=== PATIENT | female | born 1975 | race American Indian/Alaskan Native ===

== ENCOUNTER 2016-09-13 23:56 | Emergency (ER) | payer OTHER ==
[2016-09-14 00:25] VITALS: BP 153/104
== END 2016-09-14 02:43 | disposition left against medical advice (07) ==
LOC: ED 23:56
DX: S69.92XA Unspecified injury of left wrist, hand and finger(s), initial encounter (principal); F31.9 Bipolar disorder, unspecified; F41.9 Anxiety disorder, unspecified; F43.10 Post-traumatic stress disorder, unspecified; F17.200 Nicotine dependence, unspecified, uncomplicated; Z88.8 Allergy status to other drugs, medicaments and biological substances; X58.XXXA Exposure to other specified factors, initial encounter; Y93.89 Activity, other specified; Y99.9 Unspecified external cause status; Y92.89 Other specified places as the place of occurrence of the external cause; Z53.21 Procedure and treatment not carried out due to patient leaving prior to being seen by health care provider

== ENCOUNTER 2016-09-14 17:04 | Emergency (ER) | payer OTHER ==
[2016-09-14] MEDS ORDERED: TORADOL IM ONE (21:56)
--- NOTE | 2016-09-14 22:03 | Emergency Department Report ---
HPI - General Chief Complaint: Extremity Injury, Upper Time Seen by Provider: 09/14/16 21:48 - HPI HPI: 41-year-old female presents today with left wrist pain that worsened last night. Patient states that she injured her wrist at home one week ago while lifting and last night she heard a pop while picking up something heavy at work today. Describes her pain as 6 out of 10 intermittent, throbbing, ache that is worse with movement. Denies history of similar symptoms. Denies numbness, weakness, paresthesias. Denies fever, chills, nausea, vomiting, chest pain, shortness of breath, abdominal pain, headache, visual changes. Positive for history of hypertension and was on lisinopril/HCTZ. Patient states that she has been out of her medication for 3 weeks. ED Past Medical Hx - Past Medical History Hx Hypertension: Yes Hx Psychiatric Treatment: Yes (depression.anxiety,ptsd,bipolar) Additional medical history: sleep apnea - Surgical History Past Surgical History?: Yes Additional Surgical History: hysterectomy - Social History Smoking Status: Current Every Day Smoker Substance Use Type: None - Medications Home Medications: Home Medications Medication Instructions Recorded Confirmed Last Taken Type amLODIPine [Norvasc] 5 mg PO DAILY #30 tab 09/14/16 Unknown Rx traMADol [Ultram 50 MG tab] 50 mg PO Q6HR PRN #14 tablet 09/14/16 Unknown Rx ED Review of Systems ROS: Stated complaint: LT WRIST INJURY Other details as noted in HPI Constitutional: denies: chills, fever, malaise Eyes: denies: eye pain, vision change ENT: denies: ear pain, throat pain, congestion Respiratory: denies: cough, shortness of breath, wheezing Cardiovascular: denies: chest pain, palpitations Endocrine: no symptoms reported Gastrointestinal: denies: abdominal pain, nausea, vomiting Musculoskeletal: joint swelling, arthralgia Neurological: denies: headache, weakness, numbness, paresthesias Physical Exam - Physical Exam Vital Signs: Vital Signs 09/14/16 17:19 Temperature 98.2 F Pulse Rate 77 Respiratory 16 Rate Blood Pressure 169/110 O2 Sat by Pulse 100 Oximetry Physical Exam: GENERAL: The patient is well-developed and well-nourished. Patient is in NAD. HEAD: Normocephalic. Atraumatic. CHEST/LUNGS: Clear to auscultation throughout. HEART/CARDIOVASCULAR: Regular rate and rhythm. ABDOMEN: Abdomen is soft, nontender. No guarding or rebound tenderness. LEFT WRIST: Tenderness to palpation over the radial aspect of the left wrist. Positive for minimal swelling. No ecchymosis or deformity noted. Limited range of motion due to pain. Normal sensation. 2 point discrimination intact. Peripheral pulses intact. Capillary refill less than 2 seconds. NEURO: Alert and oriented x 3. Normal gait. ED Course Vital Signs 09/14/16 17:19 Temperature 98.2 F Pulse Rate 77 Respiratory 16 Rate Blood Pressure 169/110 O2 Sat by Pulse 100 Oximetry ED Medical Decision Making - Lab Data Vital Signs 09/14/16 09/14/16 09/14/16 17:19 22:23 22:24 Temperature 98.2 F 98.4 F Pulse Rate 77 72 72 Respiratory 16 20 Rate Blood Pressure 169/110 156/111 Blood Pressure 156/111 [Right] O2 Sat by Pulse 100 99 Oximetry 09/14/16 09/14/16 22:28 23:26 Temperature 98.4 F Pulse Rate 73 Respiratory 20 20 Rate Blood Pressure Blood Pressure 123/85 [Right] O2 Sat by Pulse 99 Oximetry - Radiology Data Radiology results: report reviewed - Medical Decision Making 41-year-old female presents today with left wrist pain times one week that worsened last night. Her x-ray results reveal no fracture or malalignment. 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 Patient has been provided with a referral for orthopedics. Patient also presented with elevated blood pressure levels. She was given clonidine 0.1 mg and at this time her blood pressure is 123/85. Patient will be provided with a prescription of Norvasc 5 mg. explained to patient had uncontrolled hypertension may lead to heart attack, stroke and even . Patient expressed understanding. Patient is in no acute distress at this time. She will be discharged home and is encouraged to follow up with a primary care provider. She will be sent home on tramadol and is encouraged to return to the emergency room for any worsening symptoms. Critical care attestation.: If time is entered above; I have spent that time in minutes in the direct care of this critically ill patient, excluding procedure time. ED Disposition Clinical Impression: Wrist pain Qualifiers: Laterality: left Qualified Code(s): M25.532 - Pain in left wrist HTN (hypertension) Qualifiers: Hypertension type: essential hypertension Qualified Code(s): I10 - Essential ( primary) hypertension Disposition: DISCHARGED TO HOME OR SELFCARE Is pt being admited?: No Does the pt Need Aspirin: No Condition: Stable Instructions: Hypertension (ED), Wrist Injury (ED), Arthralgia (ED) Additional Instructions: Rest. Ice. Elevate. Compress. Primary care provider. Return to the emergency department if symptoms worsen. Prescriptions: amLODIPine [Norvasc] 5 mg PO DAILY #30 tab traMADol [Ultram 50 MG tab] 50 mg PO Q6HR PRN #14 tablet PRN Reason: Pain Referrals: PRIMARY CARE, [Primary Care Provider] - 3-5 Days XAVIER AVALOS MD [Staff Physician] - 3-5 Days [facility] [Outside] - 3-5 Days Forms: Work/School Release Form(ED) Time of Disposition: 23:34
[2016-09-14] MEDS ORDERED: CATAPRES ONE (22:18)
[2016-09-14] MEDS ORDERED: CATAPRES PO ONE (22:21)
--- NOTE | 2016-09-14 23:10 | XRay Report ---
FINAL REPORT PROCEDURE: XR WRIST 3 LT TECHNIQUE: LEFT wrist radiographs, including AP, lateral, and oblique views. CPT 21227 HISTORY: wrist pain COMPARISON: No prior studies are available for comparison. FINDINGS: Fracture (s) and/or Dislocation(s): None . Alignment: Normal . 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 Soft tissues: Normal . Bone mineralization: Normal . Foreign bodies: None . IMPRESSION: There are no fractures or malalignments.. 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
[2016-09-14 23:27] VITALS: BP 123/85
== END 2016-09-15 00:01 | disposition home or self-care (01) ==
LOC: ED 17:04
DX: M25.532 Pain in left wrist (principal); I10 Essential (primary) hypertension; F32.9 Major depressive disorder, single episode, unspecified; F41.9 Anxiety disorder, unspecified; F43.10 Post-traumatic stress disorder, unspecified; Z90.710 Acquired absence of both cervix and uterus; F17.200 Nicotine dependence, unspecified, uncomplicated; X58.XXXA Exposure to other specified factors, initial encounter; Y93.89 Activity, other specified; Y92.89 Other specified places as the place of occurrence of the external cause; Y99.0 Civilian activity done for income or pay; Z88.8 Allergy status to other drugs, medicaments and biological substances
CPT/HCPCS: 73110; 96372; 99283; J1885